=== PATIENT | male | born 1970 | race Caucasian/White ===

== ENCOUNTER 2017-03-10 06:56 | Emergency (ER) | payer BC ==
[2017-03-10] MEDS ORDERED: IBUPROFEN 800 MG TABLET PO ONE (07:59)
[2017-03-10] MEDS ORDERED: ONDANSETRON 4 MG TAB.RAPDIS PO ONE (07:59)
[2017-03-10] MEDS ORDERED: SULFAMETHOXAZOLE/TRIMETHOPRIM 800-160 MG TABLET PO ONE (07:59)
[2017-03-10] MEDS ORDERED: MUPIROCIN 2% OINTMENT 22 GM TP ONE (07:59)
--- NOTE | 2017-03-10 08:02 | ER Document Report ---
HPI - HPI Patient complains to provider of: nose swelling Onset: Other - 3 days Onset/Duration: Gradual Quality of pain: Throbbing Pain Level: 5 Context: 46 yo male concerned that the red, swelling, nose tip and the lesions he popped and got pus and blood out of in his right nares is herpes since his daughtered got it on her face. No fever. No hx HSV. or MRSA. Associated Symptoms: None Exacerbated by: Denies Relieved by: Denies Similar symptoms previously: No Recently seen / treated by doctor: No - ROS ROS below otherwise negative: Yes Systems Reviewed and Negative: Yes All other systems reviewed and negative - DERM Skin Color: Normal Past Medical History - General Information source: Patient - Social History Smoking Status: Never Smoker Frequency of alcohol use: None Drug Abuse: None Lives with: Family Family History: CAD, Other - Atrial fibrillation Patient has suicidal ideation: No Patient has homicidal ideation: No - Past Medical History Cardiac Medical History: Reports: Hx Hypertension Renal/ Medical History: Denies: Hx Peritoneal Dialysis Past Surgical History: Reports: Hx Bowel Surgery - colon resection d/t diverticulitis. Denies: Hx Pacemaker - Immunizations Hx Diphtheria, Pertussis, Tetanus Vaccination: Yes Vertical Provider Document - CONSTITUTIONAL Agree With Documented VS: Yes Exam Limitations: No Limitations General Appearance: No Apparent Distress - INFECTION CONTROL TRAVEL OUTSIDE OF THE [place] IN LAST 30 DAYS: No - HEENT HEENT: Normocephalic Notes: red tip or nose with tenderness especially superior right nares with crusted lesion, no palpable abscess to I and D. - NECK Neck: Supple. negative: Lymphadenopathy-Left, Lymphadenopathy-Right - RESPIRATORY Respiratory: Breath Sounds Normal, No Respiratory Distress O2 Sat by Pulse Oximetry: 95 - CARDIOVASCULAR Cardiovascular: Regular Rate, Regular Rhythm - MUSCULOSKELETAL/EXTREMETIES Musculoskeletal/Extremeties: PADMAJA SYLVESTER - NEURO Level of Consciousness: Awake, Alert - DERM Integumentary: Warm, Dry, Abscess Course - Vital Signs Vital signs: Temp Pulse Resp BP Pulse Ox 98.5 F 89 18 150/102 H 95 03/10/17 07:00 03/10/17 07:00 03/10/17 07:00 03/10/17 07:00 03/10/17 07:00 Discharge - Discharge Clinical Impression: right nasal abscess Condition: Good Disposition: HOME, SELF-CARE Instructions: Abscess ([facility]), Oral Narcotic Medication ([facility]), Trimethoprim- Sulfa ([facility]), Warm Packs ([facility]), Bactroban Ointment ([facility]) Additional Instructions: bactroban ointment to inside nose three times per day warm compress wound culture is pending see youyr doctor about your blood pressure medication to er if worse Please complete the patient satisfaction survey if you get one, and return it.. If you do not receive a survey, then you can go to the [facility] website, [email or web address] and place your comments about your very good care. Thank you very much. It was a pleasure being your medical provider today. Prescriptions: Ibuprofen [Motrin 800 mg Tablet] 800 mg PO Q8HP PRN #30 tablet PRN Reason: Oxycodone HCl/Acetaminophen [Percocet 5-325 mg Tablet] 1 - 2 tab PO ASDIR PRN # 15 tablet PRN Reason: Sulfamethoxazole/Trimethoprim [Sulfamethoxazole-Tmp Ds Tablet] 1 each PO BID # 14 tablet Forms: Return to Work
[2017-03-10 08:38] VITALS: BP 136/85
== END 2017-03-10 08:33 | disposition home or self-care (01) ==
LOC: ER 06:56
DX: J32.9 Chronic sinusitis, unspecified (principal); R22.0 Localized swelling, mass and lump, head
CPT/HCPCS: 99282; 87070; 87205; 87077; 87186; S0119; J3490